=== PATIENT | male | born 1975 | race Native Hawaiian/Other Pacific Islander ===

== ENCOUNTER 2019-06-26 10:24 | Emergency (ER) | payer SELFPAY ==
--- NOTE | 2019-06-26 11:39 | Event Note ---
ED Screening Note Date of service: 06/26/19 Time: 11:35 ED Screening Note: presents with AH getting worse and voices telling him o hurt people or ppl out to get him causing some paranoia threats on his life denies HI/SI This initial assessment/diagnostic orders/clinical plan/treatment(s) is/are subject to change based on patients health status, clinical progression and re- assessment by fellow clinical providers in the ED. Further treatment and workup at subsequent clinical providers discretion. Patient/guardian urged not to elope from the ED as their condition may be serious if not clinically assessed and managed. Initial orders include: psych protocol main ed
[2019-06-26 12:20] LABS: Basophils # (Auto) 0.1 K/mm3 (0.0-0.1); Basophils % (Auto) 1.4 % (0.0-1.8); Eosinophils # (Auto) 0.2 K/mm3 (0.0-0.4); Eosinophils % (Auto) 3.2 % (0.0-4.3); Hematocrit 46.8 % (35.5-45.6); Hemoglobin 15.6 gm/dl (11.8-15.2); Lymphocytes # (Auto) 1.8 K/mm3 (1.2-5.4); Mean Corpuscular HGB Conc 33 % (32-34); Mean Corpuscular Volume 90 fl (84-94); Monocytes # (Auto) 0.5 K/mm3 (0.0-0.8); Monocytes % (Auto) 8.3 % (0.0-7.3); Platelet Count 325 K/mm3 (140-440); Red Blood Count 5.18 M/mm3 (3.65-5.03); Red Cell Distribution Width 14.4 % (13.2-15.2)
[2019-06-26 12:36] LABS: BUN/Creatinine Ratio 19; Blood Urea Nitrogen 13 mg/dL (9-20); Calcium 9.3 mg/dL (8.4-10.2); Hemolysis Index 6
[2019-06-26 15:13] LABS: Bilirubin,Urine NEG (Negative); Blood,Urine NEG (Negative); Color,Urine Yellow (Yellow); Protein,Urine <15 mg/dL mg/dL (Negative); WBC,Urine < 1.0 /HPF (0.0-6.0)
[2019-06-26 15:46] LABS: Benzodiazepines Screen,Urine PRESUMPTIVE NEGATIVE; Cannabinoid Screen,Urine PRESUMPTIVE NEGATIVE; Cocaine Screen,Urine PRESUMPTIVE NEGATIVE; Methadone Screen,Urine PRESUMPTIVE NEGATIVE; Opiate Screen,Urine PRESUMPTIVE NEGATIVE
[2019-06-26 15:57] LABS: Amphetamine Screen,Urine PRESUMPTIVE POSITIVE
[2019-06-26 16:24] VITALS: BP 102/61
--- NOTE | 2019-06-26 16:26 | Emergency Department Report ---
<MARTINEZ ANGEL - Last Filed: 06/26/19 19:22> ED Psych HPI - General Chief Complaint: Psych Stated Complaint: HEAD HURTING Time Seen by Provider: 06/26/19 16:21 - Related Data Allergies Allergy/AdvReac Type Severity Reaction Status Date / Time No Known Allergies Allergy Unverified 06/26/19 10:31 ED Medical Decision Making - Lab Data Result diagrams: 06/26/19 11:48 06/26/19 11:48 - Medical Decision Making Patient is 43 years old male with history of substance abuse and auditory hallucination for approximately 1 year. Patient examined by me prior to discharge. Patient has been evaluated by our psychiatric team by Dr. Mcintosh and recommended that patient need to be discharged to follow-up as an outpatient and patient does not need inpatient treatment. Patient denies any suicidal or ho micidal ideation. No evidence of acute psychosis patient is medically and psychiatrically stable for discharge. ED Disposition Clinical Impression: Auditory hallucinations, Methamphetamine abuse Disposition: DC-01 TO HOME OR SELFCARE Is pt being admited?: No Condition: Stable Instructions: Methamphetamine Abuse (ED) Referrals: PRIMARY CARE, [Primary Care Provider] - 3-5 Days <MOSHE BALL - Last Filed: 06/27/19 09:32> ED Psych HPI - General Source: patient Mode of arrival: Ambulatory - History of Present Illness Initial Comments: 43-year-old male presents to ED with auditory hallucinations. Patient states he has been having hallucinations daily for approximately 1 year. Patient states the auditory hallucinations initially began approximately 4 years ago, but only intermittently and would be associated with drinking. Patient states he stopped drinking for a period of time, but would still hear voices, so he started back drinking alcohol. Patient today states the voices will command him to do things, and if he will not do them then they threatened to hurt his family. Patient states one time the voices told him to go to the gas station to meet someone, and when he got there no one was there for him. Patient states the voices then began to laugh at him. Patient is also very paranoid. He denies the voices telling him to hurt himself or others. Patient reports alcohol use and cocaine use. States last cocaine use was 1 week ago. MD Complaint: suicidal ideation -: year(s) (1) Associated Psychiatric Symptoms: auditory hallucinations History of same: Yes Quality: constant Improves With: none Worsens With: achohol Context: recent alcohol abuse, recent drug abuse Treatments Prior to Arrival: none ED Review of Systems ROS: Stated complaint: HEAD HURTING Other details as noted in HPI Comment: All other systems reviewed and negative Psychiatric: auditory hallucinations. denies: depression, visual hallucinations, homicidal thoughts, suicidal thoughts ED Past Medical Hx - Past Medical History Previous Medical History?: No - Surgical History Past Surgical History?: No - Social History Smoking Status: Never Smoker Substance Use Type: Alcohol ED Physical Exam - General Limitations: Language Barrier General appearance: alert, in no apparent distress - Head Head exam: Present: atraumatic, normocephalic - Eye Eye exam: Present: normal appearance, EOMI - ENT ENT exam: Present: mucous membranes moist - Neck Neck exam: Present: normal inspection - Respiratory Respiratory exam: Present: normal lung sounds bilaterally. Absent: respiratory distress - Cardiovascular Cardiovascular Exam: Present: regular rate, normal rhythm - GI/Abdominal GI/Abdominal exam: Present: soft. Absent: distended, tenderness - Extremities Exam Extremities exam: Present: normal inspection - Neurological Exam Neurological exam: Present: alert, oriented X3, CN II-XII intact. Absent: motor sensory deficit - Psychiatric Psychiatric exam: Present: normal affect, normal mood - Skin Skin exam: Present: warm, dry, intact, normal color ED Course Vital Signs 06/26/19 06/26/19 06/26/19 10:51 11:39 16:23 Temperature 97.6 F 97.6 F 98.0 F Pulse Rate 78 78 82 Respiratory 18 18 20 Rate Blood Pressure 104/66 Blood Pressure 104/66 102/61 [Right] O2 Sat by Pulse 98 98 96 Oximetry ED Medical Decision Making - Lab Data Result diagrams: 06/26/19 11:48 06/26/19 11:48 Critical care attestation.: If time is entered above; I have spent that time in minutes in the direct care of this critically ill patient, excluding procedure time.
== END 2019-06-26 19:37 | disposition home or self-care (01) ==
LOC: ED 10:24
DX: F15.10 Other stimulant abuse, uncomplicated (principal); R44.0 Auditory hallucinations
CPT/HCPCS: 36415; 80048; 80307; 80320; 81001; 85025; G0480